=== PATIENT | male | born 1980 | race Caucasian/White ===

== ENCOUNTER 2025-07-09 09:09 | Emergency (ER) | payer SELFPAY ==
[~2025-07-09] VITALS: Ht 172.7 cm; Wt 100.0 kg
[2025-07-09 09:13] VITALS: BP 201/125; RESP 20; TEMP 37.3; O2SAT 97
[2025-07-09 09:14] VITALS: PULSE 139; O2SAT 96
== END 2025-07-09 09:32 | disposition left against medical advice (07) ==
LOC: ER 09:09
DX: R00.0 Tachycardia, unspecified (principal); Z53.21 Procedure and treatment not carried out due to patient leaving prior to being seen by health care provider
CPT/HCPCS: 93005; 99281

== ENCOUNTER 2025-07-09 16:03 | Emergency (ER) | payer SELFPAY ==
[~2025-07-09] VITALS: Ht 172.7 cm; Wt 110.0 kg
[2025-07-09 16:09] VITALS: TEMP 36.7; O2SAT 98
[2025-07-09 16:53] LABS: BASOPHILS % 0.8 % (0.0-2.0); EOSINOPHILS % 0.1 % (0.0-5.0); HEMATOCRIT. 45.3 % (42.0-52.0); HEMOGLOBIN. 15.6 g/dL (14.0-18.0); LYMPHOCYTES % 11.1 % (20.0-50.0); MEAN PLATELET VOLUME 8.2 fl (7.4-10.4); MONOCYTES % 3.3 % (2.0-8.0); NEUTROPHILS % 84.7 % (40.0-76.0); PLATELET 303 x1000/uL (130-400); RED BLOOD CELL COUNT 4.89 mill/uL (4.7-6.1); RED CELL DISTRIBUTION WIDTH 13.2 % (11.6-14.6)
[2025-07-09 17:11] LABS: CREATININE 0.9 mg/dL (0.6-1.3); UREA NITROGEN BLOOD 8 mg/dL (9-23)
[2025-07-09] MEDS: POTASSIUM CHLORIDE 20MEQ TABLET SR PO ONE (17:57)
[2025-07-09 18:20] VITALS: BP 196/134; PULSE 134; RESP 20; O2SAT 97
[2025-07-09] MEDS ORDERED: CLONIDINE 0.1MG TABLET PO NR (18:23)
[2025-07-09] MEDS ORDERED: CLONIDINE 0.2MG TABLET PO ONE (18:30)
== END 2025-07-09 18:47 | disposition left against medical advice (07) ==
LOC: ER 16:03 → CMPBEDREQ 07-10 07:33
DX: Z00.00 Encounter for general adult medical examination without abnormal findings (principal); Z79.899 Other long term (current) drug therapy
CPT/HCPCS: 36415; 80048; 85025; 99283